=== PATIENT | male | born 1965 | race African-American/Black ===

== ENCOUNTER → 2017-10-17 | Outpatient (CLI) | payer OTHER ==
--- NOTE | 2017-10-17 10:06 | MRI ---
MRI OF THE ABDOMEN WITHOUT IV CONTRAST Clinical indication: Renal cyst versus mass. Procedure: Multiplanar multi sequence MRI of the abdomen were obtained without the administration of intravenous contrast according to standard departmental protocol. Comparisons: None Findings: The sensitivity for focal lesion detection within the solid abdominal viscera is diminished without t he use of IV contrast. No significant iron or fat deposition in the liver or spleen. No significant ascites. Liver and spleen are normal in appearance. No focal lesions. Gallbladder is present. No gallstones. N o ductal dilatation. Pancreas demonstrates normal T1 signal. No pancreatic masses. Adrenal glands are normal. Kidneys demonstrate normal cortical medullary differentiation. No hydronephrosis. No visible renal masses or cysts. Visualized bowel is unremarkable. No suspicious lymph nodes. Impression: 1. No visible renal masses or cysts. It should be noted that a noncontrast examination is inadequate to exclude a solid renal neoplasm. Reported By:
== END | disposition home or self-care (01) ==
LOC: RAD 08:27
DX: N28.1 Cyst of kidney, acquired (principal)
CPT/HCPCS: 74181

== ENCOUNTER → 2017-11-22 | Outpatient (CLI) | payer OTHER | LOC: RAD 10:28 | DX: R93.429 Abnormal radiologic findings on diagnostic imaging of unspecified kidney (principal) ==